=== PATIENT | female | born 1970 | race Caucasian/White ===

== ENCOUNTER → 2016-03-21 | Outpatient (CLI) | payer OTHER ==
--- NOTE | 2016-03-21 10:37 | DX ---
Right Wrist, 4 Views, at 10:01 a.m. Clinical History: 45-year-old female who fell onto her outstretched hand (FOOSH) 2 weeks ago, and com plains of persistent radial side pain. ICD 10 Diagnostic Code: S69.91XA. Comparison Study: None. Findings: Bone mineralization is preserved. There is no acute or subacute fracture, or dislocation. T he distal radius and navicular are intact, and the radiocarpal and intercarpal alignments are maintai lisset. There is an orthopedic anchor projected over the base of the thumb proximal phalanx, of incident al note. Impression: There is no acute or subacute osseous abnormality. Should there be further progression of the patient's symptoms, MR imaging could be considered.
== END ==
LOC: BMCIMAGING 10:04
PROVIDERS: ATTEND Family Medicine
DX: S69.91XA Unspecified injury of right wrist, hand and finger(s), initial encounter (principal); W19.XXXA Unspecified fall, initial encounter

== ENCOUNTER → 2018-08-09 | Outpatient (CLI) | payer OTHER | LOC: BMCIMAGING 10:33 | PROVIDERS: ATTEND Family Medicine | DX: S99.922A Unspecified injury of left foot, initial encounter (principal); W22.09XA Striking against other stationary object, initial encounter ==